=== PATIENT | female | born 1955 ===

== ENCOUNTER 2025-01-17 12:00 | Inpatient (IN) | payer OTHER ==
[~2025-01-17] VITALS: Ht 167.6 cm; Wt 105.7 kg
[~2025-01-17 12:00] MED LIST: IRBESARTAN75 MG PO; PEPCID AC10 MG PO; ZEGERID 40 MG1 EACH PO
[2025-01-24] MEDS ORDERED: METRONIDAZOLE/SODIUM CHLORIDE 500 MG/100 ML PIGGYBACK IV ONE (06:17)
[2025-01-24] MEDS ORDERED: CEFTRIAXONE SODIUM 2,000 MG VIAL ONE (06:17)
[2025-01-24] MEDS ORDERED: SUGAMMADEX SODIUM 200 MG/2 ML VIAL IV ONE ×3 (08:09→08:39)
[2025-01-24] MEDS ORDERED: BUPIVACAINE HCL 30 ML VIAL IJ ONE (08:15)
[2025-01-24] MEDS ORDERED: POVIDONE-IODINE 118 ML BOTT TOP ONE (08:15)
[2025-01-24] MEDS ORDERED: DIBUCAINE 15 GM OINT..GM. TUBE RECTAL ONE (08:15)
[2025-01-24] MEDS ORDERED: LIDOCAINE HCL 1%/EPINEPHRINE 20ML VIAL IJ ONE (08:15)
[2025-01-24] MEDS ORDERED: HEMOSTATIC MATRIX 1 KIT KIT TOP ONE (08:15)
[2025-01-24] MEDS ORDERED: OxyCODONE HCL 5 MG TABLET (ROXICODONE) PO PRN (08:30)
[2025-01-24] MEDS ORDERED: 0.9 % SODIUM CHLORIDE 1,000 ML IV SCH (08:30)
[2025-01-24] MEDS ORDERED: MORPHINE SULFATE 4 MG/ML CARTRIDGE IV PRN (08:30)
[2025-01-24] MEDS ORDERED: ONDANSETRON HCL 2 MG/ML VIAL IV PRN (08:30)
[2025-01-24] MEDS ORDERED: DEXTROSE 50 % IN WATER 0.5 G/ML VIAL IV PRN (08:30)
[2025-01-24] MEDS ORDERED: CELECOXIB 200 MG CAPSULE PO SCH (09:00)
[2025-01-24] MEDS ORDERED: METRONIDAZOLE/SODIUM CHLORIDE 500 MG/100 ML PIGGYBACK IV SCH (09:00)
[2025-01-24] MEDS ORDERED: FAMOTIDINE/PF 20 MG/2 ML VIAL IV PUSH SCH (09:00)
[2025-01-24] MEDS ORDERED: GABAPENTIN 300 MG CAPSULE PO SCH (09:00)
[2025-01-24] MEDS ORDERED: HYOSCYAMINE SULFATE 0.125 MG TAB.SUBL SL SCH (09:00)
[2025-01-24] MEDS ORDERED: ENALAPRILAT DIHYDRATE 1.25 MG/ML VIAL IV PRN (10:00)
[2025-01-24] MEDS ORDERED: FAMOTIDINE/PF 20 MG/2 ML VIAL ONE (10:39)
[2025-01-24 11:43] LABS: ABG PH 7.335 (7.35-7.45); ABG pCO2 45.8 mmHg (35-45); BASE EXCESS -2.2 mmol/l; BICARBONATE 23.9 mmol/l (23-25); SaO2 99.1 %
[2025-01-24 11:44] LABS: Tco2 25.3 mmol/l
[2025-01-24 11:46] LABS: allen test SATISFACTORY; o2 40 %; puncture site RADIAL LEFT
[2025-01-24 11:47] LABS: mode MASCARILLA SIMPLE
[2025-01-24 12:33] VITALS: BP 162/76
[2025-01-24 12:53] LABS: BASO % 0.2 % (0.1-1.2); EOS # 0.01 (0.04-0.54); EOS % 0.1 % (0.7-7.0); HEMATOCRIT 44.5 % (34.1-44.9); HEMOGLOBIN 14.4 g/dL (11.2-15.7); LYMPH # 0.99 (1.18-3.74); LYMPH % 8.6 % (19.3-53.1); MONO # 0.49 (0.24-0.82); MONO % 4.3 % (4.7-12.5); NEUT # 9.91 (1.56-6.13); NEUT % 86.5 % (34.0-71.1); PLATELET COUNT 243 K/uL (163-369); RED BLOOD COUNT 4.64 M/uL (3.93-5.22); RED CELL DISTRIBUTION WIDTH 13.3 % (11.6-14.4)
[2025-01-24 13:55] LABS: ALBUMIN 3.4 gm/dL (3.4-5.0); CALCIUM 8.7 mg/dL (8.5-10.1); CREATININE SERUM 0.76 mg/dL (0.55-1.02); GFR 75.68; PHOSPHOROUS 2.5 mg/dL (2.5-4.9); POTASSIUM 4.41 mEq/L (3.5-5.1)
[2025-01-24] MEDS ORDERED: ACETAMINOPHEN 500 MG GEL..CAP PO SCH (14:00)
[2025-01-24 16:00] VITALS: BP 175/78; O2SAT 95
[2025-01-24] MEDS ORDERED: POLYETHYLENE GLYCOL 3350 17 GM BLIST.PACK PO SCH (17:00)
[2025-01-24 21:33] VITALS: O2SAT 112
[2025-01-25] VITALS: O2SAT 90
[2025-01-25 00:07] VITALS: BP 102/65; O2SAT 98
[2025-01-25 04:00] VITALS: O2SAT 93
[2025-01-25 06:45] LABS: BASO % 0.2 % (0.1-1.2); EOS # 0.06 (0.04-0.54); EOS % 0.4 % (0.7-7.0); HEMATOCRIT 39.1 % (34.1-44.9); HEMOGLOBIN 12.7 g/dL (11.2-15.7); LYMPH # 1.72 (1.18-3.74); LYMPH % 10.1 % (19.3-53.1); MEAN CORPUSCULAR HEMOGLOBIN 30.5 pg (25.6-32.2); MONO # 1.16 (0.24-0.82); MONO % 6.8 % (4.7-12.5); NEUT # 14.04 (1.56-6.13); NEUT % 82.1 % (34.0-71.1); PLATELET COUNT 215 K/uL (163-369); RED BLOOD COUNT 4.17 M/uL (3.93-5.22); RED CELL DISTRIBUTION WIDTH 13.4 % (11.6-14.4)
[2025-01-25 07:21] LABS: ALBUMIN 2.9 gm/dL (3.4-5.0); CALCIUM 8.2 mg/dL (8.5-10.1); CREATININE SERUM 0.94 mg/dL (0.55-1.02); GFR 59.22; MAGNESIUM 1.8 mg/dL (1.8-2.4); PHOSPHOROUS 3.4 mg/dL (2.5-4.9); POTASSIUM 3.9 mEq/L (3.5-5.1)
[2025-01-25 07:30] VITALS: BP 120/67; O2SAT 95
[2025-01-25] MEDS ORDERED: TRAM1TAB98 PO (08:00)
[2025-01-25] MEDS ORDERED: IRBESARTAN 75 MG TABLET PO SCH (09:00)
[2025-01-25 09:24] VITALS: O2SAT 90
[2025-01-25 12:37] VITALS: O2SAT 90
[2025-01-25] MEDS ORDERED: ENOXAPARIN SODIUM 40 MG/0.4 ML SYRINGE SUBCUTANEO SCH (17:00)
[2025-01-26] MEDS ORDERED: ENOXAPARIN SODIUM 40 MG/0.4 ML SYRINGE SUBCUTANEO SCH (09:00)
== END 2025-01-25 13:10 | disposition home or self-care (01) | DRG 395 ==
LOC: O/R 01-24 07:58 → SURG 01-24 11:42 → SURH 01-24 12:00 → SURG 01-25 13:10
PROVIDERS: Internal Medicine Geriatric Medicine; ADMIT Surgery; ATTEND Surgery
PROC: 3E0T3BZ Introduction of Anesthetic Agent into Peripheral Nerves and Plexi, Percutaneous Approach (ICD-10-PCS; 2025-01-24)
PROC: 0DBP8ZZ Excision of Rectum, Via Natural or Artificial Opening Endoscopic (ICD-10-PCS; principal; 2025-01-24 18:00)
DX: D12.8 Benign neoplasm of rectum (principal)
CPT/HCPCS: 0184T; 64430